=== PATIENT | male | born 1955 | race Caucasian/White ===

== ENCOUNTER 2024-07-15 11:17 | Inpatient (IN) | payer OTHER ==
[2024-07-16 15:19] VITALS: BMI 18.6
[2024-07-16] MEDS ORDERED: D10W 125 ML IV PRN (15:39)
[2024-07-16] MEDS ORDERED: GLUCAGON 1 MG/VIAL IM PRN (15:39)
[2024-07-16] MEDS ORDERED: POLYETHYL GLY 3350 17 GM/DOSE PO PRN (15:55)
[2024-07-16] MEDS: INSULIN REGULAR (HUMAN) 100 UNIT/ML SQ SCH (16:30)
[2024-07-16] MEDS: METFORMIN ER 500 MG TAB PO SCH (17:15)
[2024-07-16] MEDS: PROPRANOLOL HCL 10 MG TAB PO SCH (20:02)
[2024-07-16] MEDS: NIFEDIPINE XL 30 MG TABLET PO SCH (20:02)
[2024-07-16] MEDS: DOCUSATE NA/SENNA CONC 1 TAB PO SCH (20:02)
[2024-07-16] MEDS: APIXABAN 2.5 MG TABLET PO SCH (20:02)
[2024-07-16] MEDS: TRAMADOL HCL 50 MG TAB PO PRN (20:07)
[2024-07-16] MEDS ORDERED: LOSARTAN POTASSIUM 50 MG TABLET PO SCH (21:00)
[2024-07-16 22:02] LABS: Specific Gravity 1.018 (1.005-1.030); Sqamous Epithelial None Seen /HPF (None Seen); Urine Bacteria None Seen /HPF (<20); Urine Bilirubin NEGATIVE (Negative); Urine Blood 2+ (Negative); Urine Clarity Turbid (Clear); Urine Color Light-Yellow (Yellow); Urine Crystals Unidentified Few /HPF (None Seen); Urine Culture Reflex Order NOT NEEDED; Urine Glucose 2+ (Negative); Urine Ketones TRACE (Negative); Urine Micro Reflex YN NO BILL MICROSCOPIC; Urine Nitrite NEGATIVE (Negative); Urine Protein 1+ (Negative); Urine RBC >50 /HPF (None Seen); Urine Urobilinogen 1+ (Normal); Urine WBC <5 /HPF (<5); Urine Yeast (Budding) Trace /HPF (None Seen); Urine pH 6.5 (5.0-7.0)
--- NOTE | 2024-07-17 03:43 | HP ---
Date of Admission: 07/16/2024 Chief Complaint: I fell and broke my pelvic bone. History Of Present Illness: Mr. Stockton is a 68-year-old patient with diabetes mellitus type 2, hype rtension, hepatitis, chronic debility due to chronic back pain, who was determined to change a light bulb at home and he fell. Impacted the lower buttocks area and developed severe pain. Came to the e mergency department and was imaged where pelvic imaging identified a pelvic ring fracture including t he left sacral alar, left inferior pubic rami, left superior pubic rami, and causing disruption of th e pelvic ring. Orthopedic Service was consulted and in that area no surgical intervention is needed, but the patient was placed on a touchdown weightbearing status to heal by secondary intention. He r eceived DVT prophylaxis with Lovenox, a sliding insulin scale, management of his hypertension and pa in and was evaluated by the Physical and Occupational Therapy Service. He did have his laboratory st udies evaluated and managed. Hospital Course: Complicated by episode of hypotension, difficulty with mobility and physical functi oning. He had some episodes of freezing and difficulty initiating movement and right hand tremor. W odell these features were not fully evaluated previously, the features are consistent with Parkinson d isease or parkinsonism. It is a likely etiology for his falls, which his said he has had actual ly more than one fall. His blood work did show most elevated glucose for his diabetes mellitus. ___ . Prior to the fall, he did have some difficulty with a shuffling gait, some issues with gait instability, tendency to fall, and constipation. He now requires maximum assistance for bed mobiliz ation, transfers, and to ambulate with a rolling walker. He was therefore admitted to the inpatient rehabilitation unit to reduce his risk of rehospitalization, help to return to his prior level of fun ctioning. Past Medical History: As noted. Allergies: NO KNOWN DRUG ALLERGIES. Medications: 1. Tylenol 500 mg every 6 hours as needed. 2. Eliquis 2.5 mg twice daily. 3. Carbidopa/levodopa now started at just 1 tablet daily with the advanced 2 tablets daily depending on his response. 4. He has Lasix 40 mg daily. 5. Insulin sliding scale. 6. Cozaar 100 mg at bedtime. 7. Melatonin 3 mg at bedtime. 8. Metformin 500 mg twice daily. 9. Nifedipine 30 mg at bedtime. 10. Propranolol 10 mg at bedtime. 11. Senokot 2 tablets twice daily. 12. Ultram 50 mg every 6 hours as needed. Laboratory Studies: Blood sugars 170, white blood cell count 8.6, hemoglobin 8.7, hematocrit 25.4, p latelets 114. Potassium 4.0, glucose 116, BUN 20, creatinine 1.14, calcium 8.4, sodium 144. Family History: Noncontributory. Social History: No alcohol, tobacco, or IV drug use. The patient lives in a Current Level Of Functioning: Currently, Mr. Stockton functions at setup assistance for eating, groom ing, maximum assistance for bathing, moderate assistance for upper body dressing, lower body dressing , maximum assistance for toileting, transfers to the toilet on and off. He is dependent for walking, just less than 2 feet. Physical Examination: Vital Signs: Blood pressure is 152/69, pulse 97, respiratory rate 18, temperature 98.3, O2 saturatio n 97%. Weight 106 pounds. Height 5 feet 9 inches. BMI 18.6 putting him at a mildly malnourished le josé miguel. HEENT: Otherwise, he is normocephalic and atraumatic. Sclerae anicteric. Oropharynx, pink and mois t. Neck: Supple. Chest: Clear. Abdomen: Soft. Extremities: Show no significant edema or cyanosis. He does have a mask-like face with decreased bl ink rate. No drooling noted. He has generalized bradykinesia. He has a resting right-si ded upper extremity tremor that abates with movement and again is activated by rest. He has a stiff posture with postural instability. He has a festinating gait with small steps and en bloc turning. He has decreased arm swing with a tendency for tremors in the right hand with ambulation, but he is u sing rolling walker. Rehab And Medical Assessment And Plan: Mr. Stockton is a 68-year-old patient in rehabilitation unit w ith fracture of the lower extremity as the pelvic ring fracture and it is a closed pelvic ring fractu re, where he has fractures involving the left sacral ala, left inferior pubic rami, and the left supe rior pubic rami disrupting the pelvic ring. He also has features consistent with Parkinson disease. He has diabetes mellitus type 2, hypertension, hepatitis C, chronic debility due to chronic back inj ury, and decreased mobility and decreased physical functioning. Plan: He will have physical, occupational, and speech therapy 3.5 hours, 5 to 7 days. For Parkinson disease, Sinemet and carbidopa/levodopa will be started 25/100 daily and then may be adjusted twice daily. He has Eliquis 2.5 mg twice daily for DVT prophylaxis. Tylenol and tramadol for pain. Lasix for fluid management. Cozaar on board along with Inderal for his hypertension and nifedipine as wel l. He has Protonix for GE reflux. Senokot for constipation. GlycoLax also on board for constipatio n. As need be, melatonin 3 mg at night will be added for sleep. Comorbidities That Are Impacting Rehabilitation: The patient has likely been falling because of Park inson disease with freezing and falling. He will have if need be abdominal binders LUCIAN hose to cope with potential autonomic dysfunction, where his blood pressure may drop when he stands. Also, the pa tient will be strongly encouraged to mobilize while sitting with arms and legs and core mobilization before standing and attempting ambulation. Gait belt and walker will be there at all times. He is a t risk of aspiration. Aspiration precautions to be adhered too. Rehab Specific Plan: Mr. Stockton will have physical, occupational, and speech therapy 3.5 hours, 5 t o 7 days to improve his ability to transfer from bed to chair to walker, to be able to mobilize with a walker and to mobilize to a wheelchair to go up and down at least 10 steps and to perform his activ ities of daily living including dressing upper body, and on and off footwear where he has to have pre cautions from falling due to loss of postural stability. Mr. Stockton and his have good understanding of the process of admission to the inpatient rehabil itation unit and how he will benefit from physical, occupational, and speech therapy. He will have 2 4 hours a day, 7 days a week skilled rehabilitation nursing, daily physician evaluation and managemen t, and social service evaluation and management for discharge planning, home equipment, and followup. If need be, additional help will be sought from the hospitalist service. Barriers To Discharge: The patient's Parkinson's disease may make it difficult for him to go back ho ut and work very well as he will still will have significant stiffness, however, his medication may b e optimized while in rehabilitation, allowing him to be able to do well. If not, he will likely have to go to half-way for an extended stay prior to him coming back home. He may be limited by p ain due to pelvic fracture . Length Of Stay: About 12 to 14 days. Disposition: Expected to be home with continued therapy via Home Health. Prognosis: Good. Code Status: Full code. Rehab Specific Goals: 1. Become independent with upper and lower body dressing. 2. Independently transfer from bed to chair to toilet to shower. 3. Independently ambulate 250 feet with a rolling walker. 4. Independently propel a wheelchair 250 feet. 5. Independently go up and down 10 steps with bilateral handrails. 6. He is expected to independently perform cognitive functioning. 7. The above goals were reviewed with Mr. Stockton and he is in agreement. By signing this document, I acknowledge I personally performed a full physical examination on Mr. Tran no later than 24 hours after his admission to the inpatient rehabilitation unit and determined t hat he is able to tolerate the above course of treatment at an intensive level for reasonable period of time. A detailed individualized plan of care for him will be completed by hospital day 4 based on the preadmission screen, history and physical, and therapy evaluations. ELIF/CRISTI Voice ID: [id number]
[2024-07-17 06:08] LABS: Absolute Eosinophils 0.2 K/uL (0-0.5); Absolute Lymphocytes (CBC) 1.7 K/uL (0.7-4.9); Absolute Monocytes 0.7 K/uL (0.1-1.3); Absolute Neutrophil 5.4 K/uL (1.8-8.0); Basophils % 0.3 % (0-1.3); Eosinophils % 2.4 % (0-4.4); Hematocrit 30.2 % (39.6-49.0); Hemoglobin 10.7 g/dL (13.6-17.9); Lymphocytes % 21.1 % (15.3-44.8); MCH 31.9 pg (27.0-35.0); MCHC 35.5 g/dL (32.0-36.0); MCV 89.9 fL (80-100); MPV 8.4 fL (7.6-11.3); Monocytes % 9.2 % (3.3-12.3); Nucleated Red Blood Cells % 0.1 % (0-0); Platelets 159 thou/uL (152-406); RBC Red Blood Cell Count 3.36 M/uL (4.33-5.43); Red Cell Distribution Width 12.8 % (12.1-15.2)
[2024-07-17 06:33] LABS: Albumin 3.6 g/dL (3.4-5.0); Anion Gap 7.8 mEq/L (5.0-15.0); Potassium 3.8 mEq/L (3.5-5.1); Prealbumin 22.2 mg/dL (20-40)
[2024-07-17] MEDS: PANTOPRAZOLE 40MG TABLET PO SCH (06:41)
[2024-07-17] MEDS: CARBIDOPA/LEVODOPA 25/100 TAB PO SCH (06:42)
[2024-07-17] MEDS ORDERED: FUROSEMIDE 40 MG TABLET PO SCH (08:00)
[2024-07-17] MEDS: ACETAMINOPHEN 500 MG TAB PO PRN (14:48)
[2024-07-17] MEDS: BISACODYL 10 MG RECTAL SUPP PR PRN (14:58)
[2024-07-17] MEDS ORDERED: LOSARTAN POTASSIUM 50 MG TABLET PO SCH (21:00)
[2024-07-17] MEDS: GLUCERNA SHAKE 237 ML CAN PO SCH (21:18)
[2024-07-17] MEDS: NIFEDIPINE XL 30 MG TABLET PO SCH (21:18)
[2024-07-17] MEDS: LOSARTAN POTASSIUM 50 MG TABLET PO SCH (21:19)
[2024-07-18] MEDS: FUROSEMIDE 20 MG TABLET PO SCH (08:34)
[2024-07-19] MEDS: NA CHLORIDE 0.9% 1,000 ML IV SCH (14:56)
--- NOTE | 2024-07-20 03:00 | PN ---
Date of Progress Note: 07/19/2024 Time Of Service: 1:15 p.m. Subjective: Mr. Stockton is sitting in a chair in his room. He says he is not sure if the carbidopa- levodopa, which was started just 2 days ago was helpful, but he is still mobilizing and doing a littl e bit better. Says the pain from the pelvic ring fracture is well managed. The patient does have fe atures of Parkinson disease consistent with mask face en bloc turning festinating gait, decreased arm swing, and postural instability. Objective: Denies any fevers, chills. No significant nausea, vomiting. Again, pain in the pelvic a jovan is managed by medications. Otherwise, no other positives on systems review. Physical Examination: Vital Signs: Blood pressure /71, pulse 95, respiratory rate 18, temperature 97.6, oxygen s aturation 99%. Weight 126 pounds, height 5 feet 9 inches, BMI 18.6. General: Mr. Stockton is sitting in a chair. Does appear somewhat emaciated and malnourished. HEENT: Otherwise, he is normocephalic, atraumatic. Sclerae anicteric. Oropharynx pink and moist. Neck: Supple. Chest: Clear. Neurologic: He does have mask-like face, decreased mobility with bradykinesia and festinating gait w ith some postural instability. Laboratory Studies: White blood cell count 8.1, hemoglobin 10.7, platelets 159. His glucose ranged from 105 to 141. X-ray/imaging: No new x-rays or imaging. Medications: Tylenol Extra Strength 500 mg every 6 hours as needed, Eliquis 2.5 mg twice daily, Dulc olax 10 mg per rectum as needed, Sinemet 25/100 twice daily 7 a.m. and 12 noon, Glucerna shake 237 mL twice daily, Lasix 20 mg daily, Cozaar 50 mg at bedtime, melatonin 3 mg at bedtime as needed. He burrell s metformin 500 mg twice daily, midodrine 5 mg at 7 and 12, Protonix 40 mg daily, Glycolax 17 g daily as needed for constipation, Inderal 10 mg at bedtime, Senokot-S 2 at bedtime, and he is receiving so dium chloride 175 cc an hour along with tramadol 50 mg every 6 hours as needed. Progress Made With Physical, Occupational, And Speech Therapy: Today with physical therapy, he did p erform rolling in bed [id number] with moderate assistance with sit transfers with moderate assista nce. Mobilized a wheelchair 200 feet with standby assistance. With occupational therapy, contact toby kendrick assistance with toilet transfer, stand pivot transfers and grab bars being used. During therapy session, blood pressure 130/63, pulse of 72 as well as wearing the LUCIAN hose and abdominal binders. Jorge james did not have dizziness as he completed his tasks. With speech noted long-term goals were to be 95% intelligible at conversational level and improved communication to independence. Plan is to improve his SLUMS score to 27 or better. Assessment: Mr. Stockton is a 68-year-old patient in rehabilitation unit with closed pelvic rim fract ure and Parkinson's disease. He has decreased mobility, decreased physical functioning in addition t o diabetes, risk of deep vein thrombus, GE reflux, hypertension, insomnia, constipation, and dehydrat ion. Plan: We will continue with physical, occupational, and speech therapy 3-1/2 hours, 5 of 7 days. Co ntinue with his comorbid condition medications, which have been noted including DVT prophylaxis, to a ddress his stool softening requirements and his Parkinson's disease and address fluid level managemen darron ASENCIO/CRISTI Voice ID: [id number] Report ID: [id number]
[2024-07-20] MEDS: CARBIDOPA/LEVODOPA 25/100 TAB PO SCH (06:33)
[2024-07-20] MEDS: MIDODRINE HCL 5 MG TABLET PO SCH (07:10)
--- NOTE | 2024-07-20 23:06 | PN ---
Date of Progress Note: 07/20/2024 Time Of Service: 1:25 p.m. Subjective: Mr. Stockton is doing well. He is sitting in a chair beside bed. There is of course the features of Parkinson's disease. He has Sinemet 25/100 on board. Notices mild improvement in his t remor and mobilization and freedom of gait. Objective: No fevers, chills, nausea, vomiting. No myalgias, arthralgias. Physical Examination: Vital Signs: Blood pressure with orthostatics is 165/85 and pulse is 79, while sitting 142/61, pulse 89, and while standing 124/59, pulse of 90. Does have abdominal binder, LUCIAN hose, and multiple anti hypertensive medications were adjusted downwards. Laboratory Studies: No new laboratory studies except blood glucose ranged from 108 to 129. Progress Made With Physical, Occupational, And Speech Therapy: Today with physical therapy, ambulate d 175 feet and 55 feet and 100 feet with contact guard assistance. Mobilized a wheelchair 200 feet w ith standby assistance. Bixqcl-hm-ffg transfers done with minimum assistance and maximal assistance with actually lower body dressing. With occupational therapy, contact guard to minimum assistance fo r clothing management, independent with lower body dressing and ADLs and use of assistive device. Wi th speech, he recalled 4/4 unrelated words after 3, 5, and 7-minute increments. Alternating attentio n was used doing 2 tasks with 80% accuracy without cues required. Assessment: Mr. Stockton is doing very well with physical, occupational, and speech therapy. He stil l has mild decreased mobility, decreased physical functioning, has Parkinson's disease, and again the closed pelvic rim fracture, hypertension, insomnia, diabetes mellitus, and pain from his fractures. Plan: He will continue with physical, occupational, and speech therapy 3.5 hours, 5 of 7 days. He w ill continue with comorbid condition medications including for DVT prophylaxis with Eliquis 2.5 mg tw ice daily, Sinemet for Parkinson's disease, fluid management, blood pressure support, GE reflux medic ations. The patient will follow up in my office for his Parkinson's disease after he is discharged. ELIF/CRISTI Voice ID: [id number] Report ID: [id number]
[2024-07-21] MEDS: MAGNESIUM OXIDE 400 MG TAB PO SCH (19:19)
--- NOTE | 2024-07-21 20:09 | PN ---
Date of Progress Note: 07/21/2024 Time Of Service: 1:30 p.m. Subjective: Mr. Stockton is resting comfortably in a chair beside the bed, feels much better about hi s therapy. Still has some Parkinson's tremor. Does have some back soreness and arm soreness from hi s exercises. Does have the abdominal binder on. Again, some soreness in the back, but no fevers or chills. Mild myalgias. No rash. No psychiatric issues or complaints. Objective: Vital Signs: Blood pressure 100/52 up to 140/65, pulse 80 to 85, respiratory rate 16 to 20, temperature 97.8. General: Mr. Stockton is sitting in a chair beside bed. HEENT: He is normocephalic, atraumatic. Sclerae are anicteric. Oropharynx pink and moist. Neck: Supple. Chest: Clear. He does have a mask-like face and tremors in the left and right upper extremity and t hose are rest tremors that transient ameya with movement. Laboratory Studies: Blood sugars ranged from 119-139. X-ray/imaging: No new x-rays or imaging. Medications: Medications have been reviewed and are continued unchanged except he does have the carb idopa-levodopa 25/100 at 7 and at noon. He continues with midodrine for pressure support 5 mg at 7 a nd at noon as well. Progress Made With Physical, Occupational And Speech Therapy: With physical therapy, he was able to perform bxmmaf-mw-piv transfers with jeqhnki-rg-bkvlfmq assistance with lower body dressing, did mult iple cgd-os-fqhdo transfers with contact guard assistance, ambulated 175 feet and 55 feet and then 10 0 feet with contact guard assistance. Emphasis was placed on upright posturing. Wheelchair mobiliza tion for 200 feet with standby assistance. With occupational therapy, did toileting with contact gua rd to minimum assistance and has performed upper body dressing with supervision and lower body dressi ng with minimum assistance. Donning and doffing socks, minimum assistance. With speech, demonstrate d use of association to recall 4/4 unrelated pictures after 5 and 7-minute increments. Four items we re sequenced logically with 90% accuracy without cues. Organizational thinking skills used for conve rgent naming for abstract categories with 100% accuracy without cues. Assessment: Mr. Stockton is a 68-year-old patient in rehabilitation unit with Parkinson's disease and closed pelvic rim fracture. He has also decreased mobility, decreased physical functioning, pain. He has autonomic dysfunction with drops in blood pressure when standing. He has diabetes mellitus ad dressed with metformin. He has melatonin for insomnia, Cozaar on board for his blood pressure, Lasix used sparingly, and Glucerna for malnutrition, carbidopa-levodopa for Parkinson disease, and Eliquis for DVT prophylaxis. Plan: We will continue with physical, occupational, and speech therapy 3.5 hours, 5 of 7 days. We w ill continue all comorbid condition medications, which have been noted above including his DVT prophy laxis medication, Parkinson medications as well. He does have Protonix for reflux, Senokot for const ipation, Inderal to help with tremors. ELIF/CRISTI Voice ID: [id number] Report ID: [id number]
[2024-07-22 05:48] LABS: Absolute Eosinophils 0.2 K/uL (0-0.5); Absolute Lymphocytes (CBC) 1.6 K/uL (0.7-4.9); Absolute Monocytes 0.9 K/uL (0.1-1.3); Absolute Neutrophil 4.2 K/uL (1.8-8.0); Basophils % 0.4 % (0-1.3); Eosinophils % 3.5 % (0-4.4); Hematocrit 28.6 % (39.6-49.0); Hemoglobin 10.1 g/dL (13.6-17.9); Lymphocytes % 22.5 % (15.3-44.8); MCH 31.7 pg (27.0-35.0); MCHC 35.2 g/dL (32.0-36.0); MPV 8.3 fL (7.6-11.3); Monocytes % 12.3 % (3.3-12.3); Neutrophils % 61.3 % (41.7-73.7); Nucleated Red Blood Cells % 0.1 % (0-0); Platelets 189 thou/uL (152-406); RBC Red Blood Cell Count 3.18 M/uL (4.33-5.43)
[2024-07-22 06:04] LABS: Albumin 3.6 g/dL (3.4-5.0); Anion Gap 8.8 mEq/L (5.0-15.0); Magnesium 1.9 mg/dL (1.6-2.4); Potassium 3.8 mEq/L (3.5-5.1); Prealbumin 24.7 mg/dL (20-40)
--- NOTE | 2024-07-22 21:52 | PN ---
Date of Progress Note: 07/22/2024 Time Of Service: 01:25 a.m. Subjective: Mr. Stockton is resting in bed. Says he is feeling somewhat better today compared to yes terday, but still has orthostatic type symptoms where he gets lightheaded on standing. Does have mil d tremors from Parkinson disease, but feels he is somewhat more free to move with medication, carbido pa and levodopa. Objective: No fevers, chills, nausea, vomiting, myalgias, arthralgias. Physical Examination: Vital Signs: Blood pressure is 129/85, pulse 93, respiratory rate 16, temperature 98.2. He had orth ostatics; while sitting 155/77, pulse 82. While standing, 115/59, pulse 87, otherwise some mild mask ed face and resting tremor in the right more than left upper extremity. Some increased tone with cog wheeling. Laboratory Studies: White blood cell count 6.9, hemoglobin 10.1, platelets are 189. Sodium 137, pot assium 3.8, chloride 103, carbon dioxide 29, BUN 21, creatinine 0.83, glucose ranged from 98 to 166, calcium 9.3, magnesium 1.9, albumin 3.6, prealbumin 24.7. X-ray/imaging: No new x-rays or imaging. Medications: Medications have been reviewed and remain unchanged. Progress Made With Physical, Occupational, And Speech Therapy: With physical therapy today, supine-t o-sit transfers done with minimum assistance. For trunk elevation, help. Qcs-pi-zxwih transfers wit h contact guard assistance. He ambulated 175 feet, 125 feet, and 200 feet with standby assistance us ing a rolling walker. He mobilized a wheelchair 250 feet independently. With his occupational thera py, performed toilet transfers with standby assistance. Upper body dressing done independently, bren ing and doffing socks with supervision. With speech, he provided solutions to cause and effect scena hernandes with 100% accuracy with minimum verbal cues, and alternating, then divided attention task comple cesia with 100% accuracy without cues. He was on 100% intelligible at sentence level after the therapi st reviewed speech production strategies. Assessment: Mr. Stockotn is a 68-year-old patient in the rehabilitation unit with Parkinson disease a nd closed pelvic rim fracture. He has decreased mobility, decreased physical functioning, and mild t o moderate pain, orthostatic hypotension, diabetes mellitus, insomnia, and risk of deep vein thrombus . Plan: We will continue with physical, occupational, and speech therapy 3.5 hours, 5/7 days. He has a list of medications for his comorbid conditions including carbidopa and levodopa, Eliquis for DVT p rophylaxis. He has Glucerna for malnutrition, Lasix for fluid management, Cozaar for blood pressure control, melatonin for insomnia, metformin for diabetes mellitus, Florinef for orthostatic hypotensio n, and also the Senokot as well. Note, his propranolol will be discontinued. It is likely used for essential tremor. The patient has Parkinson's and not essential tremor. LB/MODL Voice ID: [id number] Report ID: [id number]
--- NOTE | 2024-07-23 13:43 | P.RH.PN ---
Estimated Length of Stay: 12 Expected Discharge Date: 07/28/24 Discharge Disposition Plan: Home Family Support: Yes Shelter Goal: Mobility, Transfers, Self Care Vital Signs: Last Vital Signs Temp 97.4 F 07/23/24 07:22 Pulse 84 07/23/24 07:50 Resp 18 07/23/24 07:50 BP 132/64 07/23/24 07:50 Pulse Ox 100 07/23/24 07:50 Laboratory: Laboratory Last Values WBC 6.90 thou/uL (4.3-10.9) 07/22/24 05:15 RBC 3.18 M/uL (4.33-5.43) L 07/22/24 05:15 Hgb 10.1 g/dL (13.6-17.9) L 07/22/24 05:15 Hct 28.6 % (39.6-49.0) L 07/22/24 05:15 MCV 90.0 fL (80-100) 07/22/24 05:15 MCH 31.7 pg (27.0-35.0) 07/22/24 05:15 MCHC 35.2 g/dL (32.0-36.0) 07/22/24 05:15 RDW 13.0 % (12.1-15.2) 07/22/24 05:15 Plt Count 189 thou/uL (152-406) 07/22/24 05:15 MPV 8.3 fL (7.6-11.3) 07/22/24 05:15 Neutrophils % 61.3 % (41.7-73.7) 07/22/24 05:15 Lymphocytes % 22.5 % (15.3-44.8) 07/22/24 05:15 Monocytes % 12.3 % (3.3-12.3) 07/22/24 05:15 Eosinophils % 3.5 % (0-4.4) 07/22/24 05:15 Basophils % 0.4 % (0-1.3) 07/22/24 05:15 Absolute Neutrophils 4.2 K/uL (1.8-8.0) 07/22/24 05:15 Absolute Lymphocytes 1.6 K/uL (0.7-4.9) 07/22/24 05:15 Absolute Monocytes 0.9 K/uL (0.1-1.3) 07/22/24 05:15 Absolute Eosinophils 0.2 K/uL (0-0.5) 07/22/24 05:15 Absolute Basophils 0.0 K/uL (0-0.5) 07/22/24 05:15 Sodium 137 mEq/L (136-145) 07/22/24 05:15 Potassium 3.8 mEq/L (3.5-5.1) 07/22/24 05:15 Chloride 103 mEq/L (98-107) 07/22/24 05:15 Carbon Dioxide 29 mEq/L (21-32) 07/22/24 05:15 Anion Gap 8.8 mEq/L (5.0-15.0) 07/22/24 05:15 BUN 21 mg/dL (7-18) H 07/22/24 05:15 Creatinine 0.83 mg/dL (0.70-1.30) 07/22/24 05:15 Est GFR (CKD-EPI) 96 ml/min (=/>90) 07/22/24 05:15 Glucose 124 mg/dL (74-106) H 07/22/24 05:15 POC Glucose 126 mg/dL (65-120) H 07/23/24 06:32 Calcium 9.3 mg/dL (8.5-10.1) 07/22/24 05:15 Magnesium 1.9 mg/dL (1.6-2.4) 07/22/24 05:15 Albumin 3.6 g/dL (3.4-5.0) 07/22/24 05:15 Prealbumin 24.7 mg/dL (20-40) 07/22/24 05:15 Urine Color Light-yellow (Yellow) 07/16/24 20:35 Urine Clarity Turbid (Clear) H 07/16/24 20:35 Urine pH 6.5 (5.0-7.0) 07/16/24 20:35 Ur Specific [place] 1.018 (1.005-1.030) 07/16/24 20:35 Glucose (UA)(Auto) 2+ (Negative) H 07/16/24 20:35 Urine Ketones Trace (Negative) H 07/16/24 20:35 Urine Blood 2+ (Negative) H 07/16/24 20:35 Urine Nitrite Negative (Negative) 07/16/24 20:35 Urine Bilirubin Negative (Negative) 07/16/24 20:35 Urine Urobilinogen 1+ (Normal) H 07/16/24 20:35 Ur Leukocyte Esterase Negative [place]/uL (Negative) 07/16/24 20:35 Urine RBC >50 /HPF (None Seen) H 07/16/24 20:35 Urine WBC <5 /HPF (<5) 07/16/24 20:35 Ur Squamous Epith Cells None seen /HPF (None Seen) 07/16/24 20:35 U Non-Squamous Epi Cells <5 /HPF (None Seen) 07/16/24 20:35 Unidentified Crystals Few /HPF (None Seen) 07/16/24 20:35 Urine Bacteria None seen /HPF (<20) 07/16/24 20:35 Urine Yeast (Budding) Trace /HPF (None Seen) H 07/16/24 20:35 Urine Culture Reflexed Not needed 07/16/24 20:35 Urine Total Protein 1+ (Negative) H 07/16/24 20:35 Weight: 126 lb Wound Present: No Closed Surgical Incision Present: No Negative Pressure Wound Therapy Present: No Physician Update: Labs reviewed and are stable. Doing well with speech therapy. Met 4/4 STG. Met 3 STG and min assist bed mobility, CTG for bed mobility. WC 250' independently. With OT CGA toilet transfers, showers, lower body dressing with postural instability. Summary: Patient's care plan and assisted goals have been reviewed and revised as necessary. Please see the Rehabilitation Signature page for all necessary signatures.
[2024-07-24] MEDS: MELATONIN 3 MG TABLET PO PRN (19:46)
[2024-07-25] MEDS: CRANBERRY FRUIT EXTRACT 425 MG CAPSULE PO SCH (07:36)
[2024-07-26 21:57] LABS: Specific Gravity 1.007 (1.005-1.030); Sqamous Epithelial None Seen /HPF (None Seen); Urine Bacteria None Seen /HPF (<20); Urine Bilirubin NEGATIVE (Negative); Urine Blood Negative (Negative); Urine Clarity Clear (Clear); Urine Color Colorless (Yellow); Urine Culture Reflex Order NOT NEEDED; Urine Glucose NEGATIVE (Negative); Urine Ketones NEGATIVE (Negative); Urine Micro Reflex YN NO BILL MICROSCOPIC; Urine Mucus Slight /HPF (None Seen); Urine Nitrite NEGATIVE (Negative); Urine Protein NEGATIVE (Negative); Urine RBC <5 /HPF (None Seen); Urine Urobilinogen Normal (Normal); Urine WBC <5 /HPF (<5); Urine pH 5.5 (5.0-7.0)
--- NOTE | 2024-07-27 00:45 | PN ---
Date of Progress Note: 07/26/2024 Time Of Service: 1:25 p.m. Subjective: Mr. Stockton is sitting in a chair beside bed. Does complain of some back pain. He does have the abdominal binder on board. Still having very elevated blood pressures when lying down, les s so when sitting and then standing. This is due to his autonomic dysfunction related to Parkinson's disease. He has no additional complaints. Objective: No fevers, chills, nausea, vomiting. Again, some pain in the back and some pain in the p elvic area where he has the closed pelvic ring fracture. Physical Examination: Vital Signs: Blood pressure 155/70, pulse 56, respiratory rate 16, temperature 97.4, oxygen saturati on 100%. General: Again, Mr. Stockton is sitting in a chair beside the bed. HEENT: He is normocephalic, atraumatic. Sclerae anicteric. Oropharynx pink, moist. Neck: Supple. Neuro: Still masklike face with some bilateral pill-rolling type tremor that is mild in the upper ex tremities. Laboratory Studies: No new laboratory studies except blood sugars ranged from 106 to 155. X-ray/imaging: No new x-rays or imaging. Medications: Medications have been reviewed and are unchanged. He is on the midodrine 5 mg at 7 and 12. Progress Made With Physical, Occupational, And Speech Therapy: With physical therapy today, he did g ait ambulation 175 feet with a rolling walker and then another 100 feet independently. He was able t o go up and down a curb backwards and was able to get into his shower simulated, this will be his charlee wer at home. Odh-ri-uvyew transfers done with standby assistance. With occupational therapy, standb y assistance for functional mobility from bed to toilet and the patient's family did family training, abdominal binder in place. Blood pressure was 138/67 during occupational therapy session. With spe ech, Mr. Stockton recalled 5 unrelated pictures after 3, 5, and 7 minutes. He did alternating attenti on task completed with 90% accuracy and minimum assistance. Working memory used for 4 pieces of info rmation with 100% accuracy and minimum assistance. He was 90% intelligible at conversational level. Assessment: Mr. Stockton is a 68-year-old patient in the rehabilitation unit with closed pelvic ring fracture and Parkinson's disease. He has autonomic dysfunction in addition to the diabetes mellitus, GE reflux, hypertension, risk of deep vein thrombosis. Plan: He will continue with physical, occupational, and speech therapy, 3.5 hours, 5 of 7 days. He has a comorbid list of medications which have been noted, those will be continued. Abdominal binder, LUCIAN hose when ambulating, and midodrine twice daily to help support pressure, but not at nighttime w hen he is usually in bed. LB/MODL Voice ID: [id number] Report ID: [id number]
[2024-07-27 05:35] LABS: Absolute Eosinophils 0.3 K/uL (0-0.5); Absolute Lymphocytes (CBC) 2.1 K/uL (0.7-4.9); Absolute Monocytes 0.6 K/uL (0.1-1.3); Absolute Neutrophil 4.6 K/uL (1.8-8.0); Basophils % 0.6 % (0-1.3); Hematocrit 29.2 % (39.6-49.0); Hemoglobin 10.3 g/dL (13.6-17.9); Lymphocytes % 26.8 % (15.3-44.8); MCH 31.6 pg (27.0-35.0); MCHC 35.3 g/dL (32.0-36.0); MCV 89.6 fL (80-100); MPV 8.2 fL (7.6-11.3); Monocytes % 8.3 % (3.3-12.3); Neutrophils % 60.3 % (41.7-73.7); Nucleated Red Blood Cells % 0.1 % (0-0); Platelets 220 thou/uL (152-406); RBC Red Blood Cell Count 3.26 M/uL (4.33-5.43); Red Cell Distribution Width 12.8 % (12.1-15.2)
[2024-07-27 05:51] LABS: Albumin 3.8 g/dL (3.4-5.0); Anion Gap 12.1 mEq/L (5.0-15.0); Magnesium 2.2 mg/dL (1.6-2.4); Potassium 4.1 mEq/L (3.5-5.1); Prealbumin 23.8 mg/dL (20-40)
[2024-07-27] MEDS: MIDODRINE HCL 5 MG TABLET PO SCH (07:37)
--- NOTE | 2024-07-27 22:50 | PN ---
Date of Progress Note: 07/27/2024 Subjective: Mr. Stockton is doing well. No new complaints. Still has orthostatic changes. Does hav e his Parkinson's disease medications which is making a significant difference in terms of mobility, but still has some tremors in the arms. Objective: He denies any fevers, chills, nausea, vomiting, myalgias, arthralgias. No rash. Physical Examination: Vital Signs: Blood pressure in terms of orthostatics, blood pressure 142/70, pulse of 72, while lyin g 167/72, pulse of 98, while standing 107/51, pulse of 101, while sitting 167/72, pulse of 90. He wa s not symptomatic at that point. HEENT: Otherwise, in terms of his exam, he is again normocephalic, atraumatic. Sclerae anicteric. The patient's BMI is 18.5, and he does look somewhat emaciated. He does use the abdominal binder and LUCIAN hose bilaterally when ambulating due to his orthostatic hypotension related to his Parkinson's d isease. Laboratory Studies: White blood cell count 7.7, hemoglobin 10.3, platelets 220. Sodium 137, potassi um 4.1, chloride 99, carbon dioxide 30, BUN 21, creatinine 1.1, glucose ranged from 113 to 120, calci um 10.1, magnesium 2.2, albumin 3.8, prealbumin 23.8. A repeat urinalysis from 07/26/2024 was normal . X-ray/imaging: No new x-rays or imaging. Medications: Medications have been reviewed and are unchanged. Progress Made With Physical, Occupational, And Speech Therapy: With physical therapy today, he did a mbulate with a rolling walker 250 feet and 150 feet independently. He was able to go up and down a c urb, fell steps, and did so very well and independently. [id number] independent and mobile, supine -to-sit transition is independent. With occupational therapy, standby assistance for short functiona l mobility with wheelchair to shower, completed showering with setup assistance. With speech, he luciano ntained a score at BIMS of 14, but improved his SLUMS from 26 to 27 indicating his cognitive and comm unicative skills are within functional limits. Assessment: Mr. Stockton is a 68-year-old patient in the rehabilitation unit with closed pelvic ring fracture and Parkinson's disease. He still has mild decreased mobility, decreased physical functioni ng, but is improved very well. He has risk of deep vein thrombus and has malnutrition, volume manage ment requiring diuretics. He has hypertension, insomnia, diabetes mellitus, GE reflux. Plan: He will continue with physical, occupational, and speech therapy until discharge. We will con tinue his comorbid condition medications. After discharge, the patient will continue with physical, occupational, and speech therapy as he will continue to benefit. He will follow up at Dr. [facility] for his Parkinson's disease and with orthopedic surgeons for the pelvic fracture. ELIF/CRISTI Voice ID: [id number] Report ID: [id number]
[2024-07-28 07:55] VITALS: TEMP 97.7
[2024-07-28 11:19] VITALS: BP 119/60
== END 2024-07-28 15:00 | disposition home health service (06) | DRG 561 ==
LOC: 5TH 07-16 14:55
PROVIDERS: ADMIT Psychiatry & Neurology Neurology with Special Qualifications in Child Neurology; ATTEND Psychiatry & Neurology Neurology with Special Qualifications in Child Neurology
DX: S32.82XD Multiple fractures of pelvis without disruption of pelvic ring, subsequent encounter for fracture with routine healing (principal); E11.9 Type 2 diabetes mellitus without complications; I10 Essential (primary) hypertension; K75.9 Inflammatory liver disease, unspecified; R53.81 Other malaise; G20.C Parkinsonism, unspecified; K21.9 Gastro-esophageal reflux disease without esophagitis; K59.00 Constipation, unspecified; E86.0 Dehydration; I95.1 Orthostatic hypotension; G47.00 Insomnia, unspecified
CPT/HCPCS: 36415; 80048; 81001; 82040; 82947; 83735; 84134; 85025; 87086; 87088; 92523; 97110; 97116; 97129; 97163; 97165; 97530; 97542; J7030